=== PATIENT | male | born 1955 | race Caucasian/White ===

== ENCOUNTER 2017-03-15 11:39 | Emergency (ER) | payer BC ==
[~2017-03-15] VITALS: Ht 180.3 cm; Wt 92.4 kg
[2017-03-15 11:42] VITALS: BP 179/81
[2017-03-15] MEDS ORDERED: AUGMENTIN875 MG PO (12:32)
== END 2017-03-15 13:18 | disposition home or self-care (01) ==
LOC: EME 11:39
PROC: 3E0234Z Introduction of Serum, Toxoid and Vaccine into Muscle, Percutaneous Approach (ICD-10-PCS; principal; 2017-03-15)
DX: S61.250A Open bite of right index finger without damage to nail, initial encounter (principal); L03.011 Cellulitis of right finger; W55.01XA Bitten by cat, initial encounter; Z23 Encounter for immunization; I10 Essential (primary) hypertension
CPT/HCPCS: 99281; 99283

== ENCOUNTER 2017-03-17 18:40 | Inpatient (IN) | payer BC ==
[~2017-03-17] VITALS: Ht 180.3 cm; Wt 90.7 kg
[~2017-03-17 18:40] MED LIST: AUGMENTIN875 MG PO
[2017-03-17 20:41] LABS: BASOPHIL (%) 0.8 % (0-1); BASOPHIL COUNT 0.1 K/uL (0-0.1); EOSINOPHIL (%) 3.4 % (0-5); EOSINOPHIL COUNT 0.3 K/uL (0-0.3); HEMATOCRIT 50.4 % (38.0-50.0); HEMOGLOBIN 17.8 G/DL (12.5-16.6); IMMATURE GRANULOCYTE (%) 0.3 % (0.0-0.7); LYMPHOCYTE (%) 30.7 % (15-42); MCH 29.6 PG (29.0-34.0); MCHC 35.3 G/DL (30.0-36.0); MCV 83.9 FL (86-99); MONOCYTE (%) 8.8 % (3-12); MONOCYTE COUNT 0.9 K/uL (0-0.8); NEUTROPHIL COUNT 5.5 K/uL (1.8-6.4); PLATELET COUNT 269 K/uL (156-360); RBC DIS.WIDTH-CV 12.1 % (11.8-14.6); RBC DIS.WIDTH-SD 36.7 % (39-53); RED BLOOD COUNT 6.01 M/uL (4.00-5.50); WHITE BLOOD COUNT 9.8 K/uL (4.1-10.2)
[2017-03-17] MEDS ORDERED: ADVIL200 MG PO (20:42)
[2017-03-17] MEDS ORDERED: AUGMENTIN875 MG PO (20:42)
[2017-03-17 20:54] LABS: CHLORIDE 106 mEq/L (99-109); POTASSIUM 4.3 mEq/L (3.7-5.4); SODIUM 139 mEq/L (136-147)
[2017-03-17 20:56] LABS: GLUCOSE 104 mg/dL (70-99)
[2017-03-17 21:00] LABS: CREATININE 0.9 mg/dL (0.6-1.3); GFR ESTIMATE (CALCULATED) > 59 mL/min/ (58.99-99999); UREA NITROGEN (BUN) 17 mg/dL (9-23)
[2017-03-17 21:01] LABS: ERTH.SED.RATE 13 MM/HR (0-20)
[2017-03-17 22:16] LABS: C-REACTIVE PROTEIN 1.8 MG/L (0-10)
[2017-03-18 06:30] LABS: BASOPHIL (%) 0.7 % (0-1); BASOPHIL COUNT 0.1 K/uL (0-0.1); EOSINOPHIL (%) 3.6 % (0-5); EOSINOPHIL COUNT 0.3 K/uL (0-0.3); HEMATOCRIT 45.1 % (38.0-50.0); IMMATURE GRANULOCYTE (%) 0.5 % (0.0-0.7); LYMPHOCYTE (%) 22.6 % (15-42); LYMPHOCYTE COUNT 1.9 K/uL (1.0-2.8); MCH 30.3 PG (29.0-34.0); MCHC 34.8 G/DL (30.0-36.0); MCV 86.9 FL (86-99); MONOCYTE (%) 8.7 % (3-12); MONOCYTE COUNT 0.7 K/uL (0-0.8); NEUTROPHIL (%) 63.9 % (45-76); NEUTROPHIL COUNT 5.4 K/uL (1.8-6.4); PLATELET COUNT 223 K/uL (156-360); RBC DIS.WIDTH-CV 12.5 % (11.8-14.6); RBC DIS.WIDTH-SD 39.6 % (39-53); RED BLOOD COUNT 5.19 M/uL (4.00-5.50); WHITE BLOOD COUNT 8.4 K/uL (4.1-10.2)
[2017-03-18 06:32] LABS: HEMOGLOBIN 15.7 G/DL (12.5-16.6)
[2017-03-18 06:59] LABS: CHLORIDE 105 MEQ/L (99-109); CREATININE 0.8 MG/DL (0.6-1.3); GFR ESTIMATE (CALCULATED) > 59 mL/min/ (58.99-99999); GLUCOSE 98 mg/dL (70-99); POTASSIUM 4.4 MEQ/L (3.7-5.4); SODIUM 140 MEQ/L (136-147); UREA NITROGEN (BUN) 17 mg/dL (9-23)
[2017-03-18] MEDS ORDERED: AMLODIPINE BESYL5 MG PO (14:16)
[2017-03-18 19:05] VITALS: BP 189/106
[2017-03-18 20:21] VITALS: BP 140/80
[2017-03-19 00:02] VITALS: BP 160/78
[2017-03-19 03:53] VITALS: BP 160/84
[2017-03-19 07:53] VITALS: BP 129/59
[2017-03-19 11:03] VITALS: BP 147/70
== END 2017-03-19 14:05 | disposition home or self-care (01) | DRG 603 ==
LOC: EME 18:40 → EDOF 22:59 → ENRESERV 23:01 → 3EAST 03-18 18:29
PROVIDERS: Emergency Medicine; Hospitalist
DX: L02.511 Cutaneous abscess of right hand (principal); L03.113 Cellulitis of right upper limb; L03.011 Cellulitis of right finger; S61.451A Open bite of right hand, initial encounter; W55.01XA Bitten by cat, initial encounter; M65.9 Synovitis and tenosynovitis, unspecified; R00.1 Bradycardia, unspecified; I10 Essential (primary) hypertension; I35.0 Nonrheumatic aortic (valve) stenosis; Z23 Encounter for immunization; Z91.19 Patient's noncompliance with other medical treatment and regimen
CPT/HCPCS: 73090; 73130; 80048; 83605; 85025; 85651; 86140; 87040; 87070; 87075; 87076; 87077; 87185; 87205; 93005; 99281; 99283; J0360; J0696; J1650; J2270; J2543; J3370; J7030; J7050